=== PATIENT | female | born 1990 | race Caucasian/White ===

== ENCOUNTER → 2017-04-06 | Emergency (ER) | payer OTHER ==
[~2017-04-06] VITALS: Ht 165.1 cm; Wt 87.7 kg
[~2017-04-06] MED LIST: IBREN600 MG PO; PERCOCET 325 MG1 TA2 PO; WELLBUTRIN XL300 M1 PO; ZOFRAN 4MG T4 MG/TAB PO
[2017-04-06 17:13] VITALS: BP 129/75; PULSE 72; TEMP 99.1
[2017-04-06 18:35] LABS: BASO % 0.1 % (0.0-2.0); GRAN # 12.9 (1.4-6.5); GRAN % 86.8 % (42.2-75.2); HEMATOCRIT 42.6 % (37.0-47.0); HEMOGLOBIN 14.2 g/dl (12.5-16.0); LYMPH # 1.3 (1.2-3.4); LYMPH % 8.5 % (20.0-51.0); MEAN CELL VOLUME 88 fl (80.0-100.0); MEAN CORPUSCULAR HEMOGLOBIN 29 pg (27.0-31.0); MEAN CORPUSCULAR HGB CONC 33 g/dl (33.0-37.0); MEAN PLATELET VOLUME 10.1 fl (7.4-10.4); MONO # 0.6 (0.1-0.6); MONO % 4.3 % (1.7-9.3); PLATELET COUNT 359 K/mm3 (130-400); RED BLOOD COUNT 4.85 M/mm3 (4.10-5.30); REDCELL DISTRIBUTION WIDTH-CV 12.8 % (11.5-14.5)
[2017-04-06 18:45] LABS: CALCIUM 9.9 mg/dL (8.4-10.2); CREATININE, serum 0.58 mg/dL (0.52-1.25); POTASSIUM 4.1 mmol/L (3.4-5.0)
== END ==
LOC: COL.ER 17:11
PROVIDERS: Nurse Practitioner Primary Care
DX: O26.891 Other specified pregnancy related conditions, first trimester (principal); R10.2 Pelvic and perineal pain; O99.341 Other mental disorders complicating pregnancy, first trimester; F32.9 Major depressive disorder, single episode, unspecified; Z3A.08 8 weeks gestation of pregnancy; Z87.42 Personal history of other diseases of the female genital tract
CPT/HCPCS: J1170; J2405; J7030

== ENCOUNTER 2017-08-23 16:00 | Inpatient (IN) | payer SELFPAY ==
[~2017-08-23] VITALS: Ht 162.6 cm; Wt 90.9 kg
[2017-08-23] VITALS (9 sets, daily range): BP systolic 104–134; BP diastolic 56–83; PULSE 77–109; TEMP 98–99.3
[2017-08-23 17:19] LABS: BASO % 0.1 % (0.0-2.0); EOS % 0.2 % (0-4.0); GRAN # 6.7 (1.4-6.5); GRAN % 76.3 % (42.2-75.2); HEMOGLOBIN 12.4 g/dl (12.5-16.0); LYMPH # 1.6 (1.2-3.4); LYMPH % 17.8 % (20.0-51.0); MEAN CELL VOLUME 89 fl (80.0-100.0); MEAN CORPUSCULAR HEMOGLOBIN 29 pg (27.0-31.0); MEAN CORPUSCULAR HGB CONC 33 g/dl (33.0-37.0); MEAN PLATELET VOLUME 9.8 fl (7.4-10.4); MONO # 0.5 (0.1-0.6); MONO % 5.3 % (1.7-9.3); PLATELET COUNT 370 K/mm3 (130-400); RED BLOOD COUNT 4.27 M/mm3 (4.10-5.30); REDCELL DISTRIBUTION WIDTH-CV 13.3 % (11.5-14.5)
[2017-08-23] MEDS ORDERED: FIORICET 325 MG1 TA1 PO (17:25)
[2017-08-23] MEDS ORDERED: PRENATAL MVI (17:26)
[2017-08-23 17:32] LABS: ALBUMIN 3.8 gm/dL (3.5-5.0); BILIRUBIN,TOTAL 0.2 mg/dL (0.0-1.0); CALCIUM 9.3 mg/dL (8.4-10.2); CREATININE, serum 0.58 mg/dL (0.52-1.25); POTASSIUM 3.3 mmol/L (3.4-5.0); TOTAL PROTEIN 7.9 gm/dL (6.4-8.2)
[2017-08-23 18:03] LABS: THYROID STIMULATING HORMONE 0.646 uIU/mL (0.465-4.680)
[2017-08-24] VITALS (25 sets, daily range): BP systolic 95–120; BP diastolic 47–70; PULSE 69–94; TEMP 98.9–99.1
[2017-08-25 11:53] LABS: FACTOR V LEIDEN MUTATION B Negative (Negative)
[2017-08-27 13:12] LABS: LUPUS ANTICOAGULANT INR 1.1 (()); LUPUS ANTICOAGULANT PT 11.6 sec (())
[2017-08-27 14:17] LABS: TOXOPLASMA AB, IGG Negative (Negative)
== END 2017-08-24 15:15 | disposition home or self-care (01) | DRG 767 ==
LOC: LDR 16:00
PROVIDERS: Obstetrics & Gynecology
PROC: 10D17ZZ Extraction of Products of Conception, Retained, Via Natural or Artificial Opening (ICD-10-PCS; principal; 2017-08-23)
PROC: 10E0XZZ Delivery of Products of Conception, External Approach (ICD-10-PCS; 2017-08-23)
PROC: 3E0P7VZ Introduction of Hormone into Female Reproductive, Via Natural or Artificial Opening (ICD-10-PCS; 2017-08-23)
DX: O36.4XX0 Maternal care for intrauterine death, not applicable or unspecified (principal); Z3A.27 27 weeks gestation of pregnancy; Z37.1 Single stillbirth
CPT/HCPCS: J2210; J2405; J2550; J2590; J3010; J7120

== ENCOUNTER 2017-08-26 22:37 | Emergency (ER) | payer OTHER ==
[~2017-08-26] VITALS: Ht 162.6 cm; Wt 86.4 kg
[~2017-08-26 22:37] MED LIST changes: +FIORICET 325 MG1 TA1 PO; +PRENATAL MVI
[2017-08-26] MEDS ORDERED: WELLBUTRIN XL300 M1 PO (22:45)
[2017-08-26 23:22] LABS: BASO % 0.2 % (0.0-2.0); EOS # 0.1 (0.0-0.7); EOS % 0.9 % (0-4.0); GRAN # 6.6 (1.4-6.5); GRAN % 69.2 % (42.2-75.2); HEMATOCRIT 35.1 % (37.0-47.0); HEMOGLOBIN 11.6 g/dl (12.5-16.0); LYMPH # 2.2 (1.2-3.4); LYMPH % 22.8 % (20.0-51.0); MEAN CELL VOLUME 87 fl (80.0-100.0); MEAN CORPUSCULAR HEMOGLOBIN 29 pg (27.0-31.0); MEAN CORPUSCULAR HGB CONC 33 g/dl (33.0-37.0); MEAN PLATELET VOLUME 9.6 fl (7.4-10.4); MONO # 0.6 (0.1-0.6); MONO % 6.5 % (1.7-9.3); PLATELET COUNT 325 K/mm3 (130-400); RED BLOOD COUNT 4.03 M/mm3 (4.10-5.30); REDCELL DISTRIBUTION WIDTH-CV 12.9 % (11.5-14.5)
[2017-08-26 23:35] LABS: ALBUMIN 3.6 gm/dL (3.5-5.0); BILIRUBIN,TOTAL 0.2 mg/dL (0.0-1.0); C-REACTIVE PROTEIN 4.3 mg/dL (0.0-0.9); CALCIUM 8.9 mg/dL (8.4-10.2); CREATININE, serum 0.69 mg/dL (0.52-1.25); POTASSIUM 3.6 mmol/L (3.4-5.0); TOTAL PROTEIN 7.2 gm/dL (6.4-8.2)
[2017-08-26] MEDS ORDERED: PHENERGAN 25 TA25 MG PO (23:44)
[2017-08-26 23:48] LABS: COLLECTION METHOD CATHETER
[2017-08-26 23:55] VITALS: BP 106/64
[2017-08-26 23:59] LABS: MUCOUS Present /lpf; PH 5 (5-8); SQUAMOUS EPITHELIAL None Seen /hpf; URINE APPEARANCE Clear; URINE BACTERIA None Seen /hpf; URINE BILIRUBIN Negative (NEGATIVE); URINE BLOOD 1+ (NEGATIVE); URINE COLOR Yellow; URINE GLUCOSE Negative (NEGATIVE); URINE KETONE 2+ (NEGATIVE); URINE LEUKOCYTE ESTERASE Negative (NEGATIVE); URINE NITRATE Negative (NEGATIVE); URINE PROTEIN(semi-quant) Negative (NEGATIVE); URINE UROBILINOGEN Negative (NEGATIVE)
[2017-08-27 00:18] VITALS: TEMP 97.8
[2017-08-27 00:57] VITALS: PULSE 82
== END 2017-08-27 00:57 | disposition home or self-care (01) ==
LOC: COL.ER 22:37
PROVIDERS: Emergency Medicine
DX: O90.89 Other complications of the puerperium, not elsewhere classified (principal); R19.7 Diarrhea, unspecified; R11.10 Vomiting, unspecified
CPT/HCPCS: J0780; J1885; J2405; J7030

== ENCOUNTER → 2018-02-28 | Outpatient (CLI) | payer OTHER ==
[~2018-02-28] MED LIST changes: +PHENERGAN 25 TA25 MG PO
== END ==
LOC: COL.RAD 12:20
DX: O20.0 Threatened abortion (principal); Z3A.13 13 weeks gestation of pregnancy

== ENCOUNTER 2018-08-20 14:00 | Inpatient (IN) | payer OTHER ==
[~2018-08-20] VITALS: Ht 162.6 cm; Wt 90.5 kg
[2018-08-20] VITALS (20 sets, daily range): BP systolic 90–133; BP diastolic 50–79; PULSE 67–101; TEMP 98.1–98.6
--- NOTE | 2018-08-20 14:10 | NUR ---
Pt arrives on unit ambulatory with spouse. States vaginal bleeding afer SVE in office yesterday. Has changed pads with bright red bleeding twice today. Reports good movement. Regular ctx began at 1300. Changed into clean gown. EFM and toco applied. VSS. SVE per this RN /-2 with scant red bleeding on glove. Admission assessment performed. Pt updated on POC. Safety reviewed. Bed locked in low position. Call light within reach.
[2018-08-20] MEDS ORDERED: PRENATAL MVI (14:38)
[2018-08-20] MEDS ORDERED: NATURAL IRON65 MG (14:39)
[2018-08-20] MEDS ORDERED: ZOFRAN ODT4 MG PO (14:40)
[2018-08-20] MEDS ORDERED: MAGNESIUM CHELA27 MG PO (14:40)
[2018-08-20 21:13] LABS: BASO % 0.2 % (0.0-2.0); EOS % 0.3 % (0-4.0); GRAN # 8.7 (1.4-6.5); GRAN % 73.8 % (42.2-75.2); HEMOGLOBIN 10.9 g/dl (12.5-16.0); LYMPH # 2.3 (1.2-3.4); LYMPH % 19.4 % (20.0-51.0); MEAN CELL VOLUME 85 fl (80.0-100.0); MEAN CORPUSCULAR HEMOGLOBIN 27 pg (27.0-31.0); MEAN CORPUSCULAR HGB CONC 32 g/dl (33.0-37.0); MEAN PLATELET VOLUME 10.6 fl (7.4-10.4); MONO # 0.7 (0.1-0.6); PLATELET COUNT 377 K/mm3 (130-400); RED BLOOD COUNT 4.07 M/mm3 (4.10-5.30); REDCELL DISTRIBUTION WIDTH-CV 14.9 % (11.5-14.5)
[2018-08-20 21:14] LABS: HEMATOCRIT 34.6 % (37.0-47.0)
--- NOTE | 2018-08-20 22:00 | NUR ---
1814- Report taken from AURELIA Santiago. SVE /-2. Will recheck in 1 hour. 1914- SVE 4-/-2. EFM and TOCO off. Patient up to restroom. 1919- EFM and TOCO on and tracing. 1924- See Physician Notification. 1929-Admission orders received. 1944- IV started. LR bolus infusing. Labs drawn and delivered to lab. Patient is very anxious and tense due to previous demise. Patient able to answer questions but has very flat affect and possible SS consult. 2099- Patient is complaining of increased intensity of contractions and is requesting an epidural at this time. MINGO Lee notified. 2114- Patient repositioned to sitting upright for epidural placement. 2122- Single Shot. See Anesthesia Record. 2144- E /2. Ortiz catheter placed. Patient is requesting Tylenol for a headache. Will consult with . 2199- Patient has complaints of N/V. Fan on. Lights dimmed.
--- NOTE | 2018-08-20 23:00 | NUR ---
Patient has a history of an unexplained 27 week demise in 07/2017. Patient struggles with depression and increased anxiety daily and is taking Wellbutrin. Patient withdrawls when speaking of expected and has a flat affect with staff. Patient unsure how she feels about expectant and whether or not she would like to hold after delivery. This RN explained to patient that it is her choice and we will continue to follow up with her and respect her wishes. This nurse consulted with and patient could benefit from SS consult after delivery.
[2018-08-21] VITALS (22 sets, daily range): BP systolic 92–120; BP diastolic 50–85; PULSE 16–109; TEMP 97.5–101.1
--- NOTE | 2018-08-21 02:00 | NUR ---
2247- Ephedrine 1mg IV given. See eMAR.. 2250- at bedside. SVE 6/-2. AROM. Moderate amount of clear, odorless fluid noted. Ok to give Tylenol for headache. See eMAR. 2320- Zofran given for N/V. See eMAR. 0045- RN called to bedside. Patient has complaints of zuleta catheter being uncomfortable. Zuleta catheter noted to be out of stat-lock positioner. SVE Complete/+1. 0050- called for delivery. 0110- Zuleta catheter removed. 150ml output noted. 0120- at bedside for delivery. Labor room set up for delivery. 0123- Patient begins pushing with contractions with MD. 0127- of viable baby girl. Cord clamped and cut. Cord blood obtained. 0129- Spontaneous delivery of placenta. Pitocin infusing at 333 ml/hr per protocol. Fundal massaged performed by RN and 3 large clots noted during massage. 1st degree perineal laceration and right labial laceration repaired by . Pericare completed by RN. 0130- PP Recovery started.
--- NOTE | 2018-08-21 10:49 | NUR ---
Initial visit; Parents thanked [employer] for offering congratulations and God's blessings for the of their daughter. [employer] thanked them for choosing [facility].
--- NOTE | 2018-08-21 11:58 | NUR ---
workers compensation claims analyst and nurse discussed concerns of grief and loss for patient. Nursing will continue to monitor and give social service coordinator a referral if any concerns noted.
[2018-08-21 16:18] LABS: BASO % 0.2 % (0.0-2.0); GRAN # 19.4 (1.4-6.5); GRAN % 89.3 % (42.2-75.2); HEMOGLOBIN 10.4 g/dl (12.5-16.0); LYMPH # 1.1 (1.2-3.4); LYMPH % 5.2 % (20.0-51.0); MEAN CELL VOLUME 85 fl (80.0-100.0); MEAN CORPUSCULAR HEMOGLOBIN 27 pg (27.0-31.0); MEAN CORPUSCULAR HGB CONC 32 g/dl (33.0-37.0); MEAN PLATELET VOLUME 10.4 fl (7.4-10.4); MONO % 4.4 % (1.7-9.3); PLATELET COUNT 316 K/mm3 (130-400); RED BLOOD COUNT 3.81 M/mm3 (4.10-5.30)
[2018-08-21 16:19] LABS: HEMATOCRIT 32.5 % (37.0-47.0)
[2018-08-21 16:21] LABS: ALBUMIN 3.3 gm/dL (3.5-5.0); BILIRUBIN,TOTAL 0.4 mg/dL (0.0-1.0); CREATININE, serum 0.73 (0.52-1.25); TOTAL PROTEIN 6.6 gm/dL (6.4-8.2)
[2018-08-22 04:00] VITALS: BP 117/68; PULSE 109; TEMP 99.8
[2018-08-22 06:45] VITALS: BP 106/56; PULSE 88; TEMP 98.6
[2018-08-22 08:43] LABS: BASO % 0.1 % (0.0-2.0); EOS % 0.1 % (0-4.0); GRAN # 11.2 (1.4-6.5); GRAN % 88.8 % (42.2-75.2); HEMATOCRIT 31.6 % (37.0-47.0); HEMOGLOBIN 10.1 g/dl (12.5-16.0); LYMPH # 0.8 (1.2-3.4); LYMPH % 6.3 % (20.0-51.0); MEAN CELL VOLUME 85 fl (80.0-100.0); MEAN CORPUSCULAR HEMOGLOBIN 27 pg (27.0-31.0); MEAN CORPUSCULAR HGB CONC 32 g/dl (33.0-37.0); MEAN PLATELET VOLUME 10.3 fl (7.4-10.4); MONO # 0.5 (0.1-0.6); MONO % 4.1 % (1.7-9.3); PLATELET COUNT 306 K/mm3 (130-400); RED BLOOD COUNT 3.72 M/mm3 (4.10-5.30); REDCELL DISTRIBUTION WIDTH-CV 15.2 % (11.5-14.5)
[2018-08-22 13:00] VITALS: BP 108/67; PULSE 105; TEMP 97.9
--- NOTE | 2018-08-22 15:30 | NUR ---
Social work met with nurse and discussed patient's grief as today is anniversary date of previous demise. Nurse printed off mental health resources for patient and worker secured an appointment with Dacia at [facility] for September 01 at 11:00 at [facility].
[2018-08-22 16:30] VITALS: BP 101/67; PULSE 82; TEMP 98.1
[2018-08-22 22:40] VITALS: BP 107/59; PULSE 87; TEMP 97.8
[2018-08-23 01:30] VITALS: BP 113/73; PULSE 80; TEMP 97.7
[2018-08-23 07:05] VITALS: BP 98/60; PULSE 67; TEMP 97.7
[2018-08-23] MEDS ORDERED: PERCOCET 325 MG1 TA2 PO (13:13)
[2018-08-23] MEDS ORDERED: IBU600 MG PO (13:13)
[2018-08-23] MEDS ORDERED: WELLBUTRIN XL300 M1 PO (13:13)
--- NOTE | 2018-08-23 14:15 | NUR ---
Patient discharge instructions reviewed with her and . Script for percocet given and explained. script for wellbutrin and motrin sent to pharmacy. Appointments reviewed. Questions answered.
== END 2018-08-23 14:35 | disposition home or self-care (01) | DRG 807 ==
LOC: LDRO 14:00 → LDR 19:30 → OB 19:30
PROVIDERS: Obstetrics & Gynecology; ADMIT Obstetrics & Gynecology
PROC: 10E0XZZ Delivery of Products of Conception, External Approach (ICD-10-PCS; principal; 2018-08-21)
PROC: 0HQ9XZZ Repair Perineum Skin, External Approach (ICD-10-PCS; 2018-08-21)
DX: O99.62 Diseases of the digestive system complicating childbirth (principal); Z37.0 Single live birth; K21.9 Gastro-esophageal reflux disease without esophagitis; O99.344 Other mental disorders complicating childbirth; F32.9 Major depressive disorder, single episode, unspecified; O70.4 Anal sphincter tear complicating delivery, not associated with third degree laceration; Z3A.37 37 weeks gestation of pregnancy
CPT/HCPCS: J0290; J1200; J1580; J2405; J2590; J2795; J7120

== ENCOUNTER 2019-05-01 19:00 | Observation (INO) | payer OTHER ==
[~2019-05-01] VITALS: Ht 162.6 cm; Wt 78.2 kg
[~2019-05-01 19:00] MED LIST changes: +IBU600 MG PO; +MAGNESIUM CHELA27 MG PO; +NATURAL IRON65 MG; +ZOFRAN ODT4 MG PO
[2019-05-01 19:42] LABS: BASO % 0.1 % (0.0-2.0); EOS # 0.1 (0.0-0.7); EOS % 1.2 % (0-4.0); GRAN # 3.3 (1.4-6.5); GRAN % 48.4 % (42.2-75.2); HEMATOCRIT 38.4 % (37.0-47.0); HEMOGLOBIN 12.7 g/dl (12.5-16.0); LYMPH # 2.8 (1.2-3.4); LYMPH % 41.6 % (20.0-51.0); MEAN CELL VOLUME 85 fl (80.0-100.0); MEAN CORPUSCULAR HEMOGLOBIN 28 pg (27.0-31.0); MEAN CORPUSCULAR HGB CONC 33 g/dl (33.0-37.0); MEAN PLATELET VOLUME 9.2 fl (7.4-10.4); MONO # 0.6 (0.1-0.6); MONO % 8.1 % (1.7-9.3); PLATELET COUNT 437 K/mm3 (130-400); RED BLOOD COUNT 4.54 M/mm3 (4.10-5.30)
[2019-05-01 19:58] LABS: ALBUMIN 4.3 gm/dL (3.5-5.0); BILIRUBIN,TOTAL 0.2 mg/dL (0.0-1.0); CALCIUM 9.4 mg/dL (8.4-10.2); CREATININE, serum 0.59 (0.52-1.25); POTASSIUM 3.2 mmol/L (3.4-5.0)
[2019-05-01] MEDS ORDERED: CIPRO 500MG TA500 MG PO (22:23)
[2019-05-02] VITALS (11 sets, daily range): BP systolic 118–138; BP diastolic 70–84; PULSE 67–86; TEMP 98.1–98.3
--- NOTE | 2019-05-02 | NUR ---
Pt arrived on unit via wheelchair and escorted by ED staff and . Pt transferred to bed without assistance. Pt oriented to room, bed and call light within reach. Plan of care reviewed with pt and at the bedside.
--- NOTE | 2019-05-02 00:30 | NUR ---
Spoke with Dr. Lyles regarding pt's arrival on unit. Orders received.
--- NOTE | 2019-05-02 05:00 | NUR ---
Spoke with Dr. Lyles for an update on pt's status with pain and vomiting. Orders for reglan and benadryl received. See EMAR for details. Dr. Lyles on his way to the hospital to discuss repeat D&C with pt.
[2019-05-02 07:09] LABS: BASO % 0.2 % (0.0-2.0); EOS # 0.1 (0.0-0.7); EOS % 1.7 % (0-4.0); GRAN # 2.5 (1.4-6.5); GRAN % 46.6 % (42.2-75.2); LYMPH # 2.1 (1.2-3.4); LYMPH % 40.3 % (20.0-51.0); MEAN CELL VOLUME 85 fl (80.0-100.0); MEAN CORPUSCULAR HGB CONC 32 g/dl (33.0-37.0); MEAN PLATELET VOLUME 9.4 fl (7.4-10.4); MONO # 0.6 (0.1-0.6); MONO % 10.4 % (1.7-9.3); PLATELET COUNT 387 K/mm3 (130-400); RED BLOOD COUNT 3.69 M/mm3 (4.10-5.30); REDCELL DISTRIBUTION WIDTH-CV 13.1 % (11.5-14.5)
[2019-05-02 07:16] LABS: HEMATOCRIT 31.5 % (37.0-47.0); HEMOGLOBIN 10.2 g/dl (12.5-16.0); MEAN CORPUSCULAR HEMOGLOBIN 28 pg (27.0-31.0)
[2019-05-02 07:42] LABS: CALCIUM 8.2 mg/dL (8.4-10.2); CREATININE, serum 0.6 (0.52-1.25); POTASSIUM 3.2 mmol/L (3.4-5.0)
--- NOTE | 2019-05-02 08:18 | NUR ---
0750 PATIENT TO OR PER BED ACCOMPANIED BY OR STAFF AND
[2019-05-02] MEDS ORDERED: PERCOCET 325 MG1 TA2 PO (09:49)
[2019-05-02] MEDS ORDERED: IBU600 MG PO (09:50)
--- NOTE | 2019-05-02 10:46 | NUR ---
1030 PATIENT UP TO BATHROOM TOLERATES WELL
--- NOTE | 2019-05-02 11:28 | NUR ---
UP TO BATHROOM VOIDS 600
== END 2019-05-02 14:40 | disposition home or self-care (01) ==
LOC: COL.ER 19:00 → OB 22:08
PROVIDERS: Emergency Medicine; ADMIT Obstetrics & Gynecology
DX: N93.9 Abnormal uterine and vaginal bleeding, unspecified (principal); D64.9 Anemia, unspecified; R10.2 Pelvic and perineal pain; F32.9 Major depressive disorder, single episode, unspecified; F41.9 Anxiety disorder, unspecified; Z88.1 Allergy status to other antibiotic agents; Z88.2 Allergy status to sulfonamides; Z88.8 Allergy status to other drugs, medicaments and biological substances; Z91.048 Other nonmedicinal substance allergy status; Z91.040 Latex allergy status; Z82.49 Family history of ischemic heart disease and other diseases of the circulatory system; Z83.3 Family history of diabetes mellitus
CPT/HCPCS: G0378; J1100; J1885; J2060; J2175; J2210; J2270; J2405; J2704; J2710; J2765; J3010; J7030; J7120; Q9967

== ENCOUNTER → 2019-10-02 | Outpatient (CLI) | payer OTHER ==
[~2019-10-02] MED LIST changes: +CIPRO 500MG TA500 MG PO
== END ==
LOC: BHSO 10:49
DX: F33.1 Major depressive disorder, recurrent, moderate (principal)

== ENCOUNTER → 2019-10-28 | Outpatient (CLI) | payer OTHER | LOC: BHSO 09:27 | DX: F33.41 Major depressive disorder, recurrent, in partial remission (principal) | CPT/HCPCS: G0463 ==

== ENCOUNTER 2020-07-29 10:46 | Observation (INO) | payer OTHER ==
[2020-07-29] VITALS (8 sets, daily range): BP systolic 112–125; BP diastolic 66–75; PULSE 79–94; TEMP 98–98.6
[~2020-07-29] VITALS: Ht 162.6 cm; Wt 83.2 kg
[2020-07-29 11:59] LABS: COLLECTION METHOD CLEAN CATCH
[2020-07-29 12:02] LABS: BASO % 0.3 % (0.0-2.0); EOS % 0.4 % (0-4.0); GRAN # 5.4 (1.4-6.5); GRAN % 68.9 % (42.2-75.2); LYMPH # 1.7 (1.2-3.4); LYMPH % 21.9 % (20.0-51.0); MEAN CELL VOLUME 83 fl (80.0-100.0); MEAN CORPUSCULAR HEMOGLOBIN 27 pg (27.0-31.0); MEAN CORPUSCULAR HGB CONC 33 g/dl (33.0-37.0); MEAN PLATELET VOLUME 9.5 fl (7.4-10.4); MONO # 0.6 (0.1-0.6); MONO % 7.1 % (1.7-9.3); PLATELET COUNT 354 K/mm3 (130-400); RED BLOOD COUNT 4.04 M/mm3 (4.10-5.30); REDCELL DISTRIBUTION WIDTH-CV 13.4 % (11.5-14.5)
[2020-07-29 12:03] LABS: HEMATOCRIT 33.7 % (37.0-47.0)
[2020-07-29 12:07] LABS: PH 7 (5-8); SQUAMOUS EPITHELIAL 0-2 /hpf; URINE APPEARANCE Clear; URINE BACTERIA Rare /hpf; URINE BILIRUBIN Negative (NEGATIVE); URINE BLOOD 2+ (NEGATIVE); URINE COLOR Yellow; URINE GLUCOSE Negative (NEGATIVE); URINE KETONE 2+ (NEGATIVE); URINE LEUKOCYTE ESTERASE Negative (NEGATIVE); URINE NITRATE Negative (NEGATIVE); URINE PROTEIN(semi-quant) Negative (NEGATIVE); URINE RBC >50 /hpf
[2020-07-29 12:11] LABS: ALBUMIN 3.8 gm/dL (3.5-5.0); BILIRUBIN,TOTAL 0.2 mg/dL (0.0-1.0); CALCIUM 8.9 mg/dL (8.4-10.2); CREATININE, serum 0.47 (0.52-1.25); POTASSIUM 3.4 mmol/L (3.4-5.0); TOTAL PROTEIN 7.2 gm/dL (6.4-8.2)
[2020-07-29 13:38] LABS: HEMOGLOBIN 10.1 g/dl (12.5-16.0)
[2020-07-29 13:39] LABS: HEMATOCRIT 30.9 % (37.0-47.0)
[2020-07-29 13:58] LABS: INR 1.2 (0.8-3.0); PROTHROMBIN TIME 12.9 SECONDS (9.7-12.8)
[2020-07-29] MEDS ORDERED: MOTRIN 800800 MG/TAB PO (15:34)
--- NOTE | 2020-07-29 16:45 | NUR ---
Pt recently arrived to the floor from OR. She is very sleepy, did wake with some effort but quickly fell back asleep. VSS at this time
--- NOTE | 2020-07-29 17:00 | NUR ---
in the room. Pt continues to be very sleepy, will continue to monitor
--- NOTE | 2020-07-29 17:38 | NUR ---
Pt more awake now. States that she has a migraine. Does not get them often, prn pain medication given. Pt reports that she does not feel as if she could eat anything at this time.
--- NOTE | 2020-07-29 18:24 | NUR ---
Pt resting with her eyes closed. She did not wake when I entered the room. continues to be present
--- NOTE | 2020-07-29 21:00 | NUR ---
Pt. sitting up on the couch at this time. Pt. is A&OX3, assessment complete. Pt. reports pain much better at this time. Pt. has met discharge criteria. Discharge paperwork completed. Reviewed discharge instructions, education, and home meds. Pt. voices understanding. INT discontinued. Pt. dressed and escorted out by this nurse via wheel chair.
[2020-07-30] MEDS ORDERED: PERCOCET 325 MG1 TA2 PO (19:50)
[2020-07-30] MEDS ORDERED: METHERGINE0.2 MG/TAB PO (19:50)
[2020-12-11] MEDS ORDERED: PERCOCET 325 MG1 TA2 PO (11:22)
[2020-12-11] MEDS ORDERED: IBU600 MG PO (11:22)
[2020-12-11] MEDS ORDERED: AMOXICILLIN 8751 TAB PO (11:22)
[2020-12-11] MEDS ORDERED: PROTONIX20 MG PO (11:23)
[2020-12-11] MEDS ORDERED: ZOFRAN ODT4 MG PO (11:23)
[2020-12-11] MEDS ORDERED: ELIQUIS 5MG PO (13:55)
== END 2020-07-29 21:00 | disposition home or self-care (01) ==
LOC: COL.ER 10:46 → SURG 14:04
PROVIDERS: Family Medicine; Physician Assistant; ADMIT Obstetrics & Gynecology
DX: O03.1 Delayed or excessive hemorrhage following incomplete spontaneous abortion (principal); O99.341 Other mental disorders complicating pregnancy, first trimester; F32.9 Major depressive disorder, single episode, unspecified; F41.9 Anxiety disorder, unspecified; O99.211 Obesity complicating pregnancy, first trimester; Z3A.10 10 weeks gestation of pregnancy; Z88.1 Allergy status to other antibiotic agents; Z91.040 Latex allergy status; Z88.2 Allergy status to sulfonamides; Z88.8 Allergy status to other drugs, medicaments and biological substances
CPT/HCPCS: G0378; J0690; J1170; J1885; J2405; J2704; J3010; J7030

== ENCOUNTER 2020-07-30 14:51 | Emergency (ER) | payer OTHER ==
[~2020-07-30] VITALS: Ht 162.6 cm; Wt 82.7 kg
[~2020-07-30 14:51] MED LIST changes: +MOTRIN 800800 MG/TAB PO
[2020-07-30 15:20] LABS: BASO % 0.2 % (0.0-2.0); EOS # 0.1 (0.0-0.7); EOS % 0.8 % (0-4.0); GRAN # 6.3 (1.4-6.5); GRAN % 72.9 % (42.2-75.2); HEMATOCRIT 35.3 % (37.0-47.0); HEMOGLOBIN 11.4 g/dl (12.5-16.0); LYMPH # 1.7 (1.2-3.4); MEAN CELL VOLUME 85 fl (80.0-100.0); MEAN CORPUSCULAR HEMOGLOBIN 27 pg (27.0-31.0); MEAN CORPUSCULAR HGB CONC 32 g/dl (33.0-37.0); MEAN PLATELET VOLUME 9.4 fl (7.4-10.4); MONO # 0.5 (0.1-0.6); MONO % 5.9 % (1.7-9.3); PLATELET COUNT 398 K/mm3 (130-400); RED BLOOD COUNT 4.17 M/mm3 (4.10-5.30); REDCELL DISTRIBUTION WIDTH-CV 13.2 % (11.5-14.5)
[2020-07-30 15:38] LABS: CALCIUM 9.1 mg/dL (8.4-10.2); CREATININE, serum 0.52 (0.52-1.25); POTASSIUM 3.4 mmol/L (3.4-5.0)
[2020-07-30 18:00] VITALS: TEMP 98.9
[2020-07-30] MEDS ORDERED: METHERGINE0.2 MG/TAB PO (19:50)
[2020-07-30] MEDS ORDERED: PERCOCET 325 MG1 TA2 PO (19:50)
[2020-07-30 20:30] VITALS: BP 128/71; PULSE 79
[2020-12-11] MEDS ORDERED: AMOXICILLIN 8751 TAB PO (11:22)
[2020-12-11] MEDS ORDERED: PERCOCET 325 MG1 TA2 PO (11:22)
[2020-12-11] MEDS ORDERED: IBU600 MG PO (11:22)
[2020-12-11] MEDS ORDERED: PROTONIX20 MG PO (11:23)
[2020-12-11] MEDS ORDERED: ZOFRAN ODT4 MG PO (11:23)
[2020-12-11] MEDS ORDERED: ELIQUIS 5MG PO (13:55)
== END 2020-07-30 20:30 | disposition home or self-care (01) ==
LOC: COL.ER 14:51
PROVIDERS: Nurse Practitioner Family
DX: O03.9 Complete or unspecified spontaneous abortion without complication (principal); R93.89 Abnormal findings on diagnostic imaging of other specified body structures; F32.9 Major depressive disorder, single episode, unspecified
CPT/HCPCS: J0780; J1170; J1200; J1885; J2060; J2270; J2405; J7030; Q9967

== ENCOUNTER 2020-08-02 13:14 | Observation (INO) | payer OTHER ==
[~2020-08-02] VITALS: Ht 162.6 cm; Wt 82.2 kg
[2020-08-02] VITALS (9 sets, daily range): BP systolic 104–130; BP diastolic 64–79; PULSE 66–88; TEMP 98.5–99.1
[~2020-08-02 13:14] MED LIST changes: +METHERGINE0.2 MG/TAB PO
[2020-08-02] MEDS ORDERED: PRISTIQ 50 MG T50 MG PO (14:19)
[2020-08-02] MEDS ORDERED: WELLBUTRIN XL300 M1 PO (14:19)
--- NOTE | 2020-08-02 15:55 | NUR ---
Becomes nauseated and diaphoretic and complains of pain at 7/10. Kg [employer] KITCHEN[employer] notified and orders received.
--- NOTE | 2020-08-02 16:05 | NUR ---
Medicated with Zofran 4mg IV and Fentanyl 50mcg IV for pain at 710. IV fluids infusing at 125cc/hr. Cool cloth to forehead.
--- NOTE | 2020-08-02 16:16 | NUR ---
Minimal relief with Fentanyl. States the pain went away briefly but has returned slightly.
--- NOTE | 2020-08-02 17:05 | NUR ---
Report called to Sudha MOSES and transferred to room 221 per cart. Spouse with patient and all belongings with patient. IV fluids continue to infuse.
--- NOTE | 2020-08-02 17:07 | NUR ---
Patient remains NPO and awaits surgery. States that she is having dry heaves and continues to feel nauseated.
--- NOTE | 2020-08-02 17:10 | NUR ---
Patient to our floor from OR preop via bed. Patient states she is having alot of nausea/vomitting and stabbing pain in left hip area. Pateint oriented to room and plan of care discussed. Assessments completed and questions answered.
[2020-08-02 17:43] LABS: BASO % 0.2 % (0.0-2.0); EOS # 0.1 (0.0-0.7); EOS % 0.8 % (0-4.0); GRAN # 6.5 (1.4-6.5); GRAN % 66.9 % (42.2-75.2); HEMOGLOBIN 10.4 g/dl (12.5-16.0); LYMPH # 2.4 (1.2-3.4); LYMPH % 24.7 % (20.0-51.0); MEAN CELL VOLUME 84 fl (80.0-100.0); MEAN CORPUSCULAR HEMOGLOBIN 28 pg (27.0-31.0); MEAN CORPUSCULAR HGB CONC 33 g/dl (33.0-37.0); MEAN PLATELET VOLUME 9.4 fl (7.4-10.4); MONO # 0.7 (0.1-0.6); MONO % 6.9 % (1.7-9.3); PLATELET COUNT 437 K/mm3 (130-400); RED BLOOD COUNT 3.75 M/mm3 (4.10-5.30); REDCELL DISTRIBUTION WIDTH-CV 13.8 % (11.5-14.5)
[2020-08-02 17:48] LABS: HEMATOCRIT 31.6 % (37.0-47.0)
--- NOTE | 2020-08-02 18:00 | NUR ---
Patient vomits at this time. Patient up to void and change pain. Small amount of bright red blood noted on pad. 1819: Report given to Patti MOSES
--- NOTE | 2020-08-02 18:50 | NUR ---
1850 TO OR PER BED.
--- NOTE | 2020-08-02 19:35 | NUR ---
1935 RETURNED TO 221 PER BED FROM OR POST D&C. VERY SLEEPY. AROUSES WHEN NAME CALLED SEVERAL TIMES. IV INFUSES.
--- NOTE | 2020-08-02 21:30 | NUR ---
2129 AWAKE AND ALERT. DRY HEAVES AND SM AMOUNT EMESIS. UNABLE TO STOP VOMITING. STATES PAIN IS AT AN 8/10, MOSTLY ON THE RIGHT SIDE NOW. VAG BLEEDING NOTED, SM PERIPAD SAT. DR SALGADO CALLED AND NOTIFIED OF PREVIOUS COMPLAINTS AND FINDINGS. NEW ORDERS RECEIVED. 2144 DILAUDID 0.5 MG IV AND COMPAZINE 5MG IV GIVEN.
--- NOTE | 2020-08-02 22:20 | NUR ---
2220 DRY HEAVING AND SM AMOUNT MUCOUSY SPIT UP. ASSIST TO BR TO VOID. HAD URINATED IN BED WHEN DRY HEAVING. VOIDED 100CC AND SM 4 CM CLOT PASSED. PERICARE DONE AND RETURNED TO BED SITTING ON SIDE. NOT CONSTANTLY TRYING TO VOMIT AT THIS TIME BUT STATES STILL FEELS VERY NAUSEATED AND HAVING RIGHT SIDED PAIN. 0 DILAUDID 0.5 MG IV PUSH GIVEN. CONTS TO SIT ON SIDE OF BED VISITING WITH .
--- NOTE | 2020-08-02 23:00 | NUR ---
2300 LYING ON SIDE IN BED WITH EYES CLOSED.
[2020-08-03 05:00] VITALS: BP 106/59; PULSE 73; TEMP 98.4
--- NOTE | 2020-08-03 05:00 | NUR ---
0500 HAS BEEN SLEEPING ALL NIGHT. NOW AWAKE AND STATES IS FEELING NAUSEATED AGAIN BUT PAIN IS BETTER. HAS NOT DRANK ANYTHING ALL NIGHT. ZOFRAN 4 MG IV GIVEN AND LR STARTED AT INT SITE. RESTING QUIETLY. ICE CHIPS OFFERED.
[2020-08-03 07:59] VITALS: BP 123/69; PULSE 74; TEMP 98
[2020-08-03 09:21] LABS: BASO % 0.2 % (0.0-2.0); EOS # 0.1 (0.0-0.7); EOS % 1.7 % (0-4.0); GRAN # 3.1 (1.4-6.5); GRAN % 59.6 % (42.2-75.2); LYMPH # 1.4 (1.2-3.4); LYMPH % 27.7 % (20.0-51.0); MEAN CELL VOLUME 84 fl (80.0-100.0); MEAN CORPUSCULAR HGB CONC 33 g/dl (33.0-37.0); MEAN PLATELET VOLUME 9.2 fl (7.4-10.4); MONO # 0.5 (0.1-0.6); MONO % 10.2 % (1.7-9.3); PLATELET COUNT 338 K/mm3 (130-400); RED BLOOD COUNT 3.39 M/mm3 (4.10-5.30); REDCELL DISTRIBUTION WIDTH-CV 13.8 % (11.5-14.5)
[2020-08-03 09:23] LABS: HEMATOCRIT 28.3 % (37.0-47.0); HEMOGLOBIN 9.2 g/dl (12.5-16.0); MEAN CORPUSCULAR HEMOGLOBIN 27 pg (27.0-31.0)
[2020-08-03 09:32] LABS: ALBUMIN 3.3 gm/dL (3.5-5.0); BILIRUBIN,TOTAL 0.2 mg/dL (0.0-1.0); CALCIUM 8.5 mg/dL (8.4-10.2); CREATININE, serum 0.54 (0.52-1.25); POTASSIUM 3.7 mmol/L (3.4-5.0); TOTAL PROTEIN 6.4 gm/dL (6.4-8.2)
--- NOTE | 2020-08-03 10:02 | NUR ---
Initial visit; Patient thanked Social Welfare Research Worker for offering God's blessings this morning.
[2020-08-03 11:30] VITALS: BP 113/66; PULSE 74; TEMP 98.9
[2020-08-03 13:16] LABS: C-REACTIVE PROTEIN 3.2 mg/dL (0.0-0.9)
[2020-08-03 15:00] VITALS: BP 113/66; PULSE 70; TEMP 98.8
[2020-08-03 20:00] VITALS: BP 128/69; PULSE 64; TEMP 99
--- NOTE | 2020-08-03 20:35 | NUR ---
2034 PM PO MEDS GIVEN AND RETAINED. HOT TEA TAKEN 2209 NAUSEATED AND EMEISI 100CC. ZOFRAN 4MG IVP GIVEN. 2219 PERCOCET X1 PO FOR HEADACHE.
[2020-08-04 02:15] VITALS: BP 97/60; PULSE 60; TEMP 99
[2020-08-04 08:18] VITALS: BP 110/80; PULSE 71; TEMP 98.5
[2020-08-04 09:07] LABS: BASO % 0.4 % (0.0-2.0); EOS # 0.1 (0.0-0.7); EOS % 1.3 % (0-4.0); GRAN # 2.3 (1.4-6.5); GRAN % 51.2 % (42.2-75.2); LYMPH # 1.7 (1.2-3.4); LYMPH % 37.7 % (20.0-51.0); MEAN CELL VOLUME 85 fl (80.0-100.0); MEAN CORPUSCULAR HGB CONC 32 g/dl (33.0-37.0); MEAN PLATELET VOLUME 9.4 fl (7.4-10.4); MONO # 0.4 (0.1-0.6); MONO % 9.2 % (1.7-9.3); PLATELET COUNT 359 K/mm3 (130-400); RED BLOOD COUNT 3.49 M/mm3 (4.10-5.30); REDCELL DISTRIBUTION WIDTH-CV 13.7 % (11.5-14.5)
[2020-08-04 09:08] LABS: HEMATOCRIT 29.6 % (37.0-47.0); HEMOGLOBIN 9.6 g/dl (12.5-16.0); MEAN CORPUSCULAR HEMOGLOBIN 28 pg (27.0-31.0)
[2020-08-04 09:20] LABS: ALANINE AMINOTRANSFERASE 15 U/L (4-34); ALBUMIN 3.5 gm/dL (3.5-5.0); ALKALINE PHOSPHATASE 59 U/L (50-136); ANION GAP 5 mmol/L (7-16); AST,SGOT 26 U/L (15-37); BILIRUBIN,TOTAL 0.2 mg/dL (0.0-1.0); C-REACTIVE PROTEIN 2.2 mg/dL (0.0-0.9); CALCIUM 8.6 mg/dL (8.4-10.2); CARBON DIOXIDE 24 mmol/L (22-30); CHLORIDE 105 mmol/L (98-107); CREATININE, serum 0.55 (0.52-1.25); GLUCOSE 68 mg/dL (74-106); POTASSIUM 3.8 mmol/L (3.4-5.0); SODIUM 134 mmol/L (137-145); TOTAL PROTEIN 6.5 gm/dL (6.4-8.2)
[2020-08-04 09:36] LABS: HCG,QUANTITATIVE 4829 mIU/mL (0-5)
[2020-08-04 09:38] LABS: BLOOD UREA NITROGEN < 2 mg/dL (7-17)
[2020-08-04 11:47] VITALS: BP 127/80; PULSE 68; TEMP 99.3
[2020-08-04 14:54] VITALS: BP 118/81; PULSE 72; TEMP 98.9
[2020-08-04] MEDS ORDERED: ZOFRAN ODT4 MG PO (17:28)
[2020-08-04] MEDS ORDERED: PERCOCET 325 MG1 TA2 PO (17:28)
[2020-08-04] MEDS ORDERED: IBU600 MG PO (17:28)
[2020-08-04] MEDS ORDERED: FLAGYL500 MG PO (17:29)
[2020-08-04] MEDS ORDERED: DOXYCYCLINE HY100 MG PO (17:29)
[2020-08-04 20:00] VITALS: BP 130/88; PULSE 76; TEMP 98.8
[2020-08-05] VITALS: BP 115/61; PULSE 57; TEMP 98.9
[2020-08-05 03:57] VITALS: BP 109/58; PULSE 49; PULSE 57; TEMP 97.9
--- NOTE | 2020-08-05 05:57 | NUR ---
PATIENT REPORTED PAIN AND NAUSEA UNTIL FALLING ASLEEP. BOTH RETURNED UPON WAKING UP THIS AM. PT REPORTS COMPAZINE AND PERCOCET HELP SO THOSE WERE GIVEN. IV ABX ADMINISTERED OVERNIGHT. PT AMBULATED TO RR WELL WITH ADEQUATE CLEAR, YELLOW OUTPUT. SHE DECIDED TO STAY OVERNGIHT TO BE SURE THE NAUSEA HAD PASSED SO SHE WOULD HAVE TO GO THROUGHT THE PROCCESS OF BEING AFDMITTED AGAIN. PT TOLERATED VERY MINIMAL PO FLUIDS BUT IV FLUIDS WERE CONTINUOUS THROUGOUT NIGHT. SHE ALSO TALKED TO HER SON ON THE PHONE LAST NIGHT AND WAS IN GOOD SPIRITS AFTER. HOWEVER, BOUTS OF NAUSEA CAUSE HER CONCERN. PT REPORTS NO OTHER QUESTIONS AT THIS TIME.
[2020-08-05 07:00] LABS: BASO % 0.3 % (0.0-2.0); EOS # 0.1 (0.0-0.7); EOS % 1.3 % (0-4.0); GRAN # 1.8 (1.4-6.5); GRAN % 45.8 % (42.2-75.2); LYMPH # 1.5 (1.2-3.4); LYMPH % 39.5 % (20.0-51.0); MEAN CELL VOLUME 83 fl (80.0-100.0); MEAN CORPUSCULAR HGB CONC 33 g/dl (33.0-37.0); MEAN PLATELET VOLUME 9.2 fl (7.4-10.4); MONO # 0.5 (0.1-0.6); MONO % 12.8 % (1.7-9.3); PLATELET COUNT 326 K/mm3 (130-400); RED BLOOD COUNT 3.55 M/mm3 (4.10-5.30); REDCELL DISTRIBUTION WIDTH-CV 13.7 % (11.5-14.5)
[2020-08-05 07:01] LABS: HEMATOCRIT 29.5 % (37.0-47.0); HEMOGLOBIN 9.6 g/dl (12.5-16.0); MEAN CORPUSCULAR HEMOGLOBIN 27 pg (27.0-31.0)
[2020-08-05 07:07] LABS: ALANINE AMINOTRANSFERASE 15 U/L (4-34); ALBUMIN 3.2 gm/dL (3.5-5.0); ALKALINE PHOSPHATASE 55 U/L (50-136); ANION GAP 7 mmol/L (7-16); AST,SGOT 27 U/L (15-37); BILIRUBIN,TOTAL 0.2 mg/dL (0.0-1.0); C-REACTIVE PROTEIN 0.9 mg/dL (0.0-0.9); CALCIUM 8.3 mg/dL (8.4-10.2); CARBON DIOXIDE 22 mmol/L (22-30); CHLORIDE 108 mmol/L (98-107); CREATININE, serum 0.51 (0.52-1.25); GLUCOSE 118 mg/dL (74-106); POTASSIUM 3.6 mmol/L (3.4-5.0); SODIUM 137 mmol/L (137-145); TOTAL PROTEIN 6.3 gm/dL (6.4-8.2)
[2020-08-05 07:11] LABS: BLOOD UREA NITROGEN < 2 mg/dL (7-17)
[2020-08-05 09:10] VITALS: BP 114/74; PULSE 70; TEMP 98.8
--- NOTE | 2020-08-05 11:25 | NUR ---
ZOFRAN TO BE GIVEN FOR NAUSEA. PT DOES NOT WANT IV TO BE RESTARTED. WANTS TO GO HOME. STATES IT IS TOO HARD TO HEAR CRYING BABIES. ASKED PT IF SHE WANTS THIS RN TO SEE IF ANOTHER ROOM COULD BE OBTAINED FOR HER ON ANOTHER FLOOR AND SHE SAYS NO, SHE WANTS TO GO HOME BECAUSE "THIS SUCKS."
[2020-12-11] MEDS ORDERED: PERCOCET 325 MG1 TA2 PO (11:22)
[2020-12-11] MEDS ORDERED: AMOXICILLIN 8751 TAB PO (11:22)
[2020-12-11] MEDS ORDERED: IBU600 MG PO (11:22)
[2020-12-11] MEDS ORDERED: ZOFRAN ODT4 MG PO (11:23)
[2020-12-11] MEDS ORDERED: PROTONIX20 MG PO (11:23)
[2020-12-11] MEDS ORDERED: ELIQUIS 5MG PO (13:55)
== END 2020-08-05 12:40 | disposition home or self-care (01) ==
LOC: SDCO 13:14 → OB 17:10 → SDCO 17:11 → OB 08-04 10:38
PROVIDERS: ADMIT Obstetrics & Gynecology
DX: O03.4 Incomplete spontaneous abortion without complication (principal); O02.89 Other abnormal products of conception; D62 Acute posthemorrhagic anemia; K21.9 Gastro-esophageal reflux disease without esophagitis; F41.9 Anxiety disorder, unspecified; F32.9 Major depressive disorder, single episode, unspecified; F50.9 Eating disorder, unspecified; Z79.899 Other long term (current) drug therapy; Z83.3 Family history of diabetes mellitus; Z82.49 Family history of ischemic heart disease and other diseases of the circulatory system
CPT/HCPCS: OP; C9113; G0378; J0694; J0780; J1170; J1885; J2405; J2704; J3010; J3480; J7120

== ENCOUNTER 2020-12-04 00:15 | Emergency (ER) | payer OTHER ==
[~2020-12-04] VITALS: Ht 162.6 cm; Wt 80.0 kg
[~2020-12-04 00:15] MED LIST changes: +DOXYCYCLINE HY100 MG PO; +FLAGYL500 MG PO; +PRISTIQ 50 MG T50 MG PO
[2020-12-04 00:53] LABS: BASO % 0.3 % (0.0-2.0); EOS # 0.1 K/mm3 (0.0-0.7); EOS % 0.5 % (0-4.0); GRAN # 8.1 K/mm3 (1.4-6.5); GRAN % 74.1 % (42.2-75.2); HEMOGLOBIN 11.4 g/dl (12.5-16.0); LYMPH % 18.3 % (20.0-51.0); MEAN CELL VOLUME 79 fl (80.0-100.0); MEAN CORPUSCULAR HEMOGLOBIN 25 pg (27.0-31.0); MEAN CORPUSCULAR HGB CONC 32 g/dl (33.0-37.0); MEAN PLATELET VOLUME 9.5 fl (7.4-10.4); MONO # 0.7 K/mm3 (0.1-0.6); MONO % 6.5 % (1.7-9.3); PLATELET COUNT 419 K/mm3 (130-400); RED BLOOD COUNT 4.55 M/mm3 (4.10-5.30); REDCELL DISTRIBUTION WIDTH-CV 15.3 % (11.5-14.5)
[2020-12-04 00:55] LABS: COLLECTION METHOD CLEAN CATCH
[2020-12-04 01:00] LABS: MUCOUS Present /lpf; PH 5 (5-8); SQUAMOUS EPITHELIAL 0-2 /hpf; URINE APPEARANCE Clear; URINE BACTERIA None Seen /hpf; URINE BILIRUBIN Negative (NEGATIVE); URINE BLOOD 1+ (NEGATIVE); URINE COLOR Yellow; URINE GLUCOSE Negative (NEGATIVE); URINE KETONE 2+ (NEGATIVE); URINE LEUKOCYTE ESTERASE Negative (NEGATIVE); URINE NITRATE Negative (NEGATIVE); URINE PROTEIN(semi-quant) Negative (NEGATIVE); URINE UROBILINOGEN Negative (NEGATIVE)
[2020-12-04 01:14] LABS: BILIRUBIN,TOTAL 0.4 mg/dL (0.2-1.2); CALCIUM 9.8 mg/dL (8.4-10.2); CREATININE, serum 0.79 mg/dL (0.57-1.11); POTASSIUM 3.6 mmol/L (3.5-4.5); TOTAL PROTEIN 8.1 gm/dL (6.2-8.1)
[2020-12-04 03:53] VITALS: BP 120/89; PULSE 89; TEMP 98.4
[2020-12-11] MEDS ORDERED: AMOXICILLIN 8751 TAB PO (11:22)
[2020-12-11] MEDS ORDERED: PERCOCET 325 MG1 TA2 PO (11:22)
[2020-12-11] MEDS ORDERED: IBU600 MG PO (11:22)
[2020-12-11] MEDS ORDERED: PROTONIX20 MG PO (11:23)
[2020-12-11] MEDS ORDERED: ZOFRAN ODT4 MG PO (11:23)
[2020-12-11] MEDS ORDERED: ELIQUIS 5MG PO (13:55)
== END 2020-12-04 03:53 | disposition home or self-care (01) ==
LOC: COL.ER 00:15
PROVIDERS: Emergency Medicine
DX: O21.9 Vomiting of pregnancy, unspecified (principal); O20.0 Threatened abortion; O26.891 Other specified pregnancy related conditions, first trimester; R10.31 Right lower quadrant pain; R10.32 Left lower quadrant pain; Z3A.08 8 weeks gestation of pregnancy
CPT/HCPCS: J2405; J7030

== ENCOUNTER 2020-12-07 16:06 | Day surgery (SDC) | payer OTHER ==
[2020-12-07] VITALS (10 sets, daily range): BP systolic 122–135; BP diastolic 66–79; PULSE 92–104; TEMP 99.1–99.6
[~2020-12-07] VITALS: Ht 162.6 cm; Wt 81.5 kg
[2020-12-07] MEDS ORDERED: PRENATAL TABLET PO (17:56)
--- NOTE | 2020-12-07 19:00 | NUR ---
PT TO UNIT FROM PACU VIA GURNEY WITH PACU STAFF AND DENTAL OFFICE COORDINATOR. PT GROGGY AND ONLY RESPONDS TO REPEATED TOUCH AND VERBAL STIMULI. VS AND VAGINAL BLEEDING WNL. PT REPORTED TO DENTAL OFFICE COORDINATOR SHE IS VERY SENSITIVE TO ANESTHESIA AND OTHER MEDICATONS. PT RECEIVED DILUADID AND VALIUM PRIOR TO PROCEDURE.
--- NOTE | 2020-12-07 23:00 | NUR ---
PT COMPLAINS OF RINGING IN EARS, NAUSEA, CRAMPING AND HEADACHE. PT STATES ZOFRAN GIVEN AT APPROXIMATELY 2230 HAS NOT HELPED WITH NAUSEA. THIS NURSE OFFERS IV PAIN MEDICATION BUT PT STATES SHE IS ALLERGIC TO MORPHINE AND STATES SHE WOULD LIKE TO ATTEMPT TAKING A PERCOCET FOR HER PAIN. ENCOURGED PT TO SIP WATER AND EAT SALTINES BUT PT DENIED. PERCOCET GIVEN PER PT REQUEST. WILL SPEAK WITH DR. SALGADO ABOUT DIFFERENT IV PAIN MEDICATION.
--- NOTE | 2020-12-07 23:45 | NUR ---
DR. SALGADO IN ROOM TO DISCUSS PAIN AND NAUSEA MANAGEMENT. PT TO STAY OVERNIGHT TO GET PAIN AND NAUSEA UNDER CONTROL. NEW ORDERS GIVEN BY DR. SALGADO.
[2020-12-08 03:45] VITALS: BP 104/63; PULSE 79; TEMP 98.4
[2020-12-08 07:30] VITALS: BP 108/68; PULSE 86; TEMP 98.3
--- NOTE | 2020-12-08 09:00 | NUR ---
Discharge instructions and follow up care reviewed with pt and at the bedside. Both verbalized an understanding, agreed with the plan and states no questions or concerns at this time.
--- NOTE | 2020-12-08 09:05 | NUR ---
Pt discharge home ambulatory and escorted off unit by staff and .
[2020-12-11] MEDS ORDERED: IBU600 MG PO (11:22)
[2020-12-11] MEDS ORDERED: AMOXICILLIN 8751 TAB PO (11:22)
[2020-12-11] MEDS ORDERED: PERCOCET 325 MG1 TA2 PO (11:22)
[2020-12-11] MEDS ORDERED: PROTONIX20 MG PO (11:23)
[2020-12-11] MEDS ORDERED: ZOFRAN ODT4 MG PO (11:23)
[2020-12-11] MEDS ORDERED: ELIQUIS 5MG PO (13:55)
== END 2020-12-08 09:05 | disposition home or self-care (01) ==
LOC: SDCO 16:06 → OB 12-08 07:39 → SDCO 12-08 09:05
DX: O02.1 Missed abortion (principal); N96 Recurrent pregnancy loss; O99.214 Obesity complicating childbirth; O99.341 Other mental disorders complicating pregnancy, first trimester; F41.1 Generalized anxiety disorder; F32.A Depression, unspecified; Z3A.09 9 weeks gestation of pregnancy; H93.19 Tinnitus, unspecified ear
CPT/HCPCS: OP; J0780; J1170; J1885; J2405; J2704; J7120